=== PATIENT | female | born 1955 | race Caucasian/White ===

== ENCOUNTER → 2017-05-02 17:05 | Outpatient (CLI) | payer OTHER ==
[~2017-05-02 17:05] MED LIST: ARMOUR THYROID90 MG PO; EDARBYCLOR 40-1 EACH PO; HYDROCODONE-APA1 TAB PO; LEXAPRO20 MG PO; PROTONIX40 MG PO; VITAMIN D31000 UNI2 PO
== END | disposition home or self-care (01) ==
LOC: D.MAMMO 15:00
DX: N64.4 Mastodynia (principal)